=== PATIENT | female | born 1980 | race African-American/Black ===

== ENCOUNTER → 2017-10-21 | Outpatient (CLI) | payer OTHER ==
[2017-10-21 10:36] LABS: BASOPHIL % 0.4 % (0-2); PLATELET COUNT 241 x10^3mcL (130-400); RED CELL DISTRIBUTION WIDTH 12.8 % (11.5-14.5)
[2017-10-21 10:53] LABS: UA SPECIFIC GRAVITY <=1.005 (1.005-1.035); microscopic required? YES; urine erythrocyte NEGATIVE (NEGATIVE)
[2017-10-21 11:10] LABS: ALBUMIN 3.7 g/dL (3.4-5.0); ALKALINE PHOSPHATASE 110 U/L (46-116); ALT/SGPT 25 U/L (14-59); AST/SGOT 16 U/L (15-37); BILIRUBIN TOTAL 0.6 mg/dL (0.20-1.00); CALCIUM 8.8 mg/dL (8.5-10.1); CARBON DIOXIDE 29.4 mmol/L (21-32); CHLORIDE SERUM 104 mmol/L (98-107); CHOLESTEROL 147 mg/dL (<200); CHOLESTEROL/HDL RATIO 2.8; CREATININE SERUM 0.7 mg/dL (0.6-1.0); GFR1 > 60 mL/min; GLUCOSE SERUM 95 mg/dL (74-106); HDL CHOLESTEROL 53 mg/dL (40-60); POTASSIUM SERUM 3.7 mmol/L (3.5-5.1); SODIUM SERUM 140 mmol/L (136-145); TRIGLYCERIDES 65 mg/dL (<150)
[2017-10-21 11:11] LABS: TOTAL PROTEIN, SERUM 8.3 g/dL (6.4-8.2)
== END | disposition home or self-care (01) ==
LOC: LB 10:12
PROVIDERS: Family Medicine Geriatric Medicine
DX: Z13.228 Encounter for screening for other metabolic disorders (principal); Z13.21 Encounter for screening for nutritional disorder; Z13.1 Encounter for screening for diabetes mellitus; Z13.0 Encounter for screening for diseases of the blood and blood-forming organs and certain disorders involving the immune mechanism; Z13.220 Encounter for screening for lipoid disorders; Z13.29 Encounter for screening for other suspected endocrine disorder
CPT/HCPCS: 82652

== ENCOUNTER → 2017-12-09 | Outpatient (CLI) | payer OTHER | END | disposition home or self-care (01) | LOC: US 13:25 | PROC: BU4CZZZ Ultrasonography of Uterus and Ovaries (ICD-10-PCS; principal; 2017-12-09) | PROC: BW4GZZZ Ultrasonography of Pelvic Region (ICD-10-PCS; 2017-12-09) | DX: N85.2 Hypertrophy of uterus (principal) ==